=== PATIENT | male | born 1960 | race Caucasian/White ===

== ENCOUNTER 2020-06-21 15:39 | Emergency (ER) | payer SELFPAY ==
[~2020-06-21] VITALS: Ht 162.6 cm; Wt 68.0 kg
[2020-06-21 15:39] VITALS: BP_SYST 130
--- NOTE | 2020-06-21 15:39 | NUR ---
Patient triaged and placed in ER Tent. VSS and patient appears in no acute distress at this time. Awaiting available bed, and MD notified of need for MSE.
--- NOTE | 2020-06-21 15:40 | NUR ---
Patient came from home via BLS for evaluation of SOB. Patient reports testing positive for COVID-19 3 days ago and is also suffering from bodyaches.
--- NOTE | 2020-06-21 16:00 | NUR ---
ER Dr. Venegas in tent examining patient.
[2020-06-21 16:22] VITALS: BP_SYST 128
--- NOTE | 2020-06-21 16:22 | NUR ---
Patient given written and verbal discharge instructions and verbalizes understanding. ER MD discussed with patient the results and treatment provided. Patient in stable condition. ID arm band removed. Rx of PLAQUENIL, DEXAMETHASONE, ZINC SULFATE given. Patient educated on pain management and to follow up with PMD. Pain Scale 0/10 Opportunity for questions provided and answered. Medication side effect fact sheet provided.
== END 2020-06-21 16:22 | disposition home or self-care (01) ==
LOC: SED 15:39
DX: U07.1 COVID-19 (principal)
CPT/HCPCS: 71045; 99283